=== PATIENT | male | born 1975 | race Caucasian/White ===

== ENCOUNTER 2019-02-17 21:24 | Inpatient (IN) | payer BC, OTHER ==
[~2019-02-17] VITALS: Ht 185.4 cm; Wt 127.5 kg
--- NOTE | 2019-02-17 21:30 | ED.ADGEN ---
Adult General Chief Complaint Chief Complaint ".. I all ready seen Dr Orona office.. and they said it was an [place] bite bite.. and they gave me a shot of steroids.. but the area gotten a lot more read.. and it is streaking up my Lt arm.. my whole arm is swollen now.. and hurt.. it even hurts into my chest..." HPI HPI Patient is a 43 year old MALE who presents with above hx and complaints Headache, Lt. arm and chest pain. Patient has left arm swelling at area of erythema that is inside of his left arm up to his axillary area. Does have adenopathy in axillary area. There is some streaking or striations. No obvious cording. Distal neurovascular intact. Patient denies any trauma. No recent travel. No history of immunosuppression. Patient does not remember his last tetanus. Patient was seen in Dr. Orona's office today. In diet as well as a open wide by and received a IM injection of steroids. Pt. stated since that time he had increase symptoms, Lt. arm edema and pain. Pt. complaints of fever and chills. Review of Systems Review of Systems Constitutional: Denies fever or chills [] Eyes: Denies change in visual acuity, redness, or eye pain [] HENT: Denies nasal congestion or sore throat [] Respiratory: Denies cough or shortness of breath [] Cardiovascular: No additional information not addressed in HPI [] GI: Denies abdominal pain, nausea, vomiting, bloody stools or diarrhea [] : Denies dysuria or hematuria [] Musculoskeletal: Denies back pain or joint pain [] Complaints of Lt arm pain and edema. Integument: Denies rash or skin lesions []Complaints of Lt arm rash. Neurologic: Denies headache, focal weakness or sensory changes [] Endocrine: Denies polyuria or polydipsia [] All other systems were reviewed and found to be within normal limits, except as documented in this note. Family History Family History Noncontributory Current Medications Current Medications Current Medications Medications (Trade) Dose Ordered Sig/Kali Start Time Stop Time Status Last Admin Dose Admin Acetaminophen (Tylenol) 650 mg PRN Q4HRS PRN 02/18/19 00:00 02/18/19 23:59 Albuterol/ Ipratropium (Duoneb) 3 ml RTQID 02/18/19 08:00 02/19/19 07:59 Aspirin (Children'S Aspirin) 81 mg DAILY 02/18/19 09:00 Ceftriaxone Sodium 1 gm/ Sodium Chloride 50 ml @ 100 mls/hr QHS 02/18/19 21:00 Ceftriaxone Sodium (Rocephin) 1 gm STK-MED ONCE 02/17/19 22:41 02/17/19 22:41 DC Diphtheria/ Tetanus/Acell Pertussis (Boostrix) 0.5 ml ONCE ONCE 02/17/19 22:30 02/17/19 22:31 DC 02/17/19 22:54 0.5 ML Enoxaparin Sodium (Lovenox 120mg Syringe) 120 mg BID 02/18/19 09:00 Lactated Ringer's 1,000 ml @ 160 mls/hr Q6H15M 02/18/19 04:00 Lactobacillus Rhamnosus (Culturelle) 1 cap BID 02/18/19 09:00 Morphine Sulfate (Morphine 10mg Syringe) 10 mg QIDPRN PRN 02/18/19 00:00 Ondansetron HCl (Zofran) 4 mg PRN Q4HRS PRN 02/18/19 00:00 02/18/19 23:59 Sodium Chloride 50 ml @ As Directed STK-MED ONCE 02/17/19 22:41 02/17/19 22:41 DC Trimethoprim/ Sulfamethoxazole (Bactrim Ds) 1 tab BID 02/18/19 09:00 Allergies Allergies Allergies Coded Allergies Type Severity Reaction Last Updated Verified No Known Drug Allergies 07/11/14 No Physical Exam Physical Exam Constitutional: Well developed, well nourished, no acute distress, non-toxic appearance. [] HENT: Normocephalic, atraumatic, bilateral external ears normal, oropharynx moist, no oral exudates, nose normal. [] Scar rt. eyebrow. Eyes: PERRLA, EOMI, conjunctiva normal, no discharge. [] Neck: Normal range of motion, no tenderness, supple, no stridor. [] Cardiovascular:Tachycardia Heart rate regular rhythm, no murmur [] Lungs & Thorax: Bilateral breath sounds equal at apexes on auscultation [] Abdomen: Bowel sounds normal, soft, no tenderness, no masses, no pulsatile masses. [] Skin: Warm, dry, erythema and rash lt arm as per HPI Back: No tenderness, no CVA tenderness. [] Extremities: No tenderness, no cyanosis, no clubbing, ROM intact, no edema. [] Except edema and tenderness in Lt. arm. Neurologic: Alert and oriented X 3, normal motor function, normal sensory function, no gross focal deficits noted. [] Psychologic: Affect anxious, judgement normal, mood normal. [] Current Patient Data Vital Signs Vital Signs Date Time Temp Pulse Resp B/P (MAP) Pulse Ox O2 Delivery O2 Flow Rate FiO2 02/17/19 22:54 19 100 02/17/19 21:25 98.8 100 Room Air Lab Results Laboratory Tests Test 02/17/19 21:50 02/17/19 23:20 White Blood Count 15.9 x10^3/uL (4.0-11.0) H Red Blood Count 4.58 x10^6/uL (4.30-5.70) Hemoglobin 14.5 g/dL (13.0-17.5) Hematocrit 42.9 % (39.0-53.0) Mean Corpuscular Volume 94 fL (79-100) Mean Corpuscular Hemoglobin 32 pg (25-35) Mean Corpuscular Hemoglobin Concent 34 g/dL (31-37) Red Cell Distribution Width 13.4 % (11.5-14.5) Platelet Count 260 x10^3/uL (140-400) Neutrophils (%) (Auto) 88 % (31-73) H Lymphocytes (%) (Auto) 6 % (24-48) L Monocytes (%) (Auto) 6 % (0-9) Eosinophils (%) (Auto) 0 % (0-3) Basophils (%) (Auto) 0 % (0-3) Neutrophils # (Auto) 14.0 x10^3uL (1.8-7.7) H Lymphocytes # (Auto) 0.9 x10^3/uL (1.0-4.8) L Monocytes # (Auto) 1.0 x10^3/uL (0.0-1.1) Eosinophils # (Auto) 0.0 x10^3/uL (0.0-0.7) Basophils # (Auto) 0.0 x10^3/uL (0.0-0.2) Segmented Neutrophils % 90 % (35-66) H Band Neutrophils % 2 % (0-9) Lymphocytes % 4 % (24-48) L Monocytes % 4 % (0-10) Platelet Estimate Adequate (ADEQUATE) Prothrombin Time 11.4 SEC (9.4-11.4) Prothrombin Time INR 1.1 (0.9-1.1) Activated Partial Thromboplast Time 27 SEC (23-33) D-Dimer (Mary Jane) 0.95 mg/L (0.00-0.50) H Sodium Level 139 mmol/L (136-145) Potassium Level 4.2 mmol/L (3.5-5.1) Chloride Level 107 mmol/L (98-107) Carbon Dioxide Level 25 mmol/L (21-32) Anion Gap 7 (6-14) Blood Urea Nitrogen 30 mg/dL (8-26) H Creatinine 1.6 mg/dL (0.7-1.3) H Estimated GFR (Cockcroft-Gault) 47.0 Glucose Level 139 mg/dL (70-99) H Calcium Level 10.4 mg/dL (8.5-10.1) H Magnesium Level 2.0 mg/dL (1.8-2.4) Total Bilirubin 0.5 mg/dL (0.2-1.0) Direct Bilirubin 0.1 mg/dL (0.0-0.2) Aspartate Amino Transferase (AST) 9 U/L (15-37) L Alanine Aminotransferase (ALT) 20 U/L (16-63) Alkaline Phosphatase 107 U/L (46-116) Creatine Kinase 107 U/L (39-308) Troponin I Quantitative < 0.017 ng/mL (0-0.055) Total Protein 6.5 g/dL (6.4-8.2) Albumin 3.5 g/dL (3.4-5.0) Lipase 44 U/L (73-393) L Urine Collection Type Unknown Urine Color Yellow Urine Clarity Clear Urine pH 5.5 Urine Specific [place] 1.020 Urine Protein Neg (NEG-TRACE) Urine Glucose (UA) Neg mg/dL (NEG) Urine Ketones (Stick) Neg mg/dL (NEG) Urine Blood Neg (NEG) Urine Nitrite Neg (NEG) Urine Bilirubin Neg (NEG) Urine Urobilinogen Dipstick 0.2 mg/dL (0.2 mg/dL) Urine Leukocyte Esterase Neg (NEG) Urine RBC Occ /HPF (0-2) Urine WBC 5-10 /HPF (0-4) Urine Squamous Epithelial Cells Few /LPF Urine Bacteria 0 /HPF (0-FEW) Urine Opiates Screen Neg (NEG) Urine Methadone Screen Neg (NEG) Urine Barbiturates Neg (NEG) Urine Phencyclidine Screen Neg (NEG) Urine Amphetamine/Methamphetamine Neg (NEG) Urine Benzodiazepines Screen Neg (NEG) Urine Cocaine Screen Neg (NEG) Urine Cannabinoids Screen Pos (NEG) Urine Ethyl Alcohol Neg (NEG) EKG EKG My interpretation EKG shows a sinus tachycardia at 101, left axis.[] Radiology/Procedures Radiology/Procedures Interpretation chest x-ray shows no acute cardiopulmonary findings[] [address] [address] IMAGING REPORT Signed PATIENT: ONI ROGERS ACCOUNT: [id number] : 1975 LOCATION: ER AGE: 43 SEX: M EXAM STATUS: REG ER ORD. PHYSICIAN: GIULIANA HUA MD REASON: Chest pain, left armpit radiating into chest swelling and redness PROCEDURE: CHEST PA & LATERAL Exam: Chest 2 views INDICATION: Chest pain TECHNIQUE: Frontal and lateral views of the chest Comparisons: None FINDINGS: The cardiomediastinal silhouette and pulmonary vessels are within normal limits. The lung and pleural spaces are clear. IMPRESSION: No acute cardiopulmonary process. Electronically signed by: Catherine Zarate MD (02/17/2019 10:39 PM) [facility] DICTATED AND SIGNED BY: CATHERINE ZARATE MD DATE: 02/17/19 2239 CC: CONNER ORONA MD; GIULIANA HUA MD ~ Course & Med Decision Making Course & Med Decision Making Pertinent Labs and Imaging studies reviewed. (See chart for details) US of Lt. arm pending at time of admission. Heart Score [address] Orona. [] Final Impression Final Impression 1. Atypical Chest Pain 2. Cellulitis 3. Elevated D-dimer 0.95 4. Dehydration 5. [Elevated Bun / Crea 30/1.6 6. Leukocytosis 15.9 with Segs 90 7. Tachycardia Dragon Disclaimer Dragon Disclaimer This electronic medical record was generated, in whole or in part, using a voice recognition dictation system. Dragon Disclaimer This chart was dictated in whole or in part using Voice Recognition software in a busy, high-work load, and often noisy Emergency Department environment. It may contain unintended and wholly unrecognized errors or omissions. Dragon Disclaimer This chart was dictated in whole or in part using Voice Recognition software in a busy, high-work load, and often noisy Emergency Department environment. It may contain unintended and wholly unrecognized errors or omissions. GIULIANA HUA MD Feb 17, 2019 21:30
[2019-02-17] MEDS ORDERED: IV RINGERS SOLUTION,LACTATED 1,000 ML IV SCH (21:32)
[2019-02-17] MEDS ORDERED: ASPIRIN 81 MG TAB.CHEW PO ONE (21:45)
[2019-02-17 22:16] LABS: BASO % 0 % (0-3); EOS % 0 % (0-3); HEMATOCRIT 42.9 % (39.0-53.0); HEMOGLOBIN 14.5 g/dL (13.0-17.5); LYMPH # 0.9 x10^3/uL (1.0-4.8); LYMPH % 6 % (24-48); MEAN CORPUSCULAR HEMOGLOBIN 32 pg (25-35); MEAN CORPUSCULAR HGB CONC 34 g/dL (31-37); MEAN CORPUSCULAR VOLUME 94 fL (79-100); MONO % 6 % (0-9); NEUT % 88 % (31-73); PLATELET COUNT 260 x10^3/uL (140-400); RED BLOOD COUNT 4.58 x10^6/uL (4.30-5.70); RED CELL DISTRIBUTION WIDTH 13.4 % (11.5-14.5); WHITE BLOOD COUNT 15.9 x10^3/uL (4.0-11.0)
[2019-02-17] MEDS ORDERED: SMZ/TMP 800/160MG TABLET. PO ONE (22:30)
[2019-02-17] MEDS ORDERED: DIPHTH,PERTUSS(ACELL),TET TOX 0.5 ML DISP.SYRIN. VAX IM ONE (22:30)
[2019-02-17 22:39] LABS: % BANDS 2 % (0-9); % LYMPHS 4 % (24-48); % MONOS 4 % (0-10); % SEGS 90 % (35-66); PLT ESTIMATE ADEQUATE (ADEQUATE)
[2019-02-17 22:41] LABS: ALBUMIN 3.5 g/dL (3.4-5.0); CALCIUM 10.4 mg/dL (8.5-10.1); CREATININE 1.6 mg/dL (0.7-1.3); DIRECT BILIRUBIN 0.1 mg/dL (0.0-0.2); POTASSIUM 4.2 mmol/L (3.5-5.1); TOTAL BILIRUBIN 0.5 mg/dL (0.2-1.0); TOTAL PROTEIN 6.5 g/dL (6.4-8.2)
[2019-02-17] MEDS ORDERED: cefTRIAXone SODIUM 1 GM VIAL ONE (22:41)
[2019-02-17] MEDS ORDERED: IV NORMAL SALINE 50ML 50 ML ONE (22:41)
--- NOTE | 2019-02-17 22:42 | RAD ---
Exam: Chest 2 views INDICATION: Chest pain TECHNIQUE: Frontal and lateral views of the chest Comparisons: None FINDINGS: The cardiomediastinal silhouette and pulmonary vessels are within normal limits. The lung and pleural spaces are clear. IMPRESSION: No acute cardiopulmonary process. Electronically signed by: Catherine Downey MD (02/17/2019 10:39 PM) [facility]
[2019-02-17] MEDS ORDERED: MORPHINE SULFATE 10 MG/ML SYRINGE. SQ ONE (23:00)
[2019-02-17 23:47] LABS: BILIRUBIN,URINE NEG (NEG); CLARITY,URINE CLEAR; COLOR,URINE YELLOW; GLUCOSE,URINE NEG (NEG)
[2019-02-17 23:48] LABS: BACTERIA,URINE 0 /HPF (0-FEW); BARBITURATES NEG (NEG); BENZODIAZEPINES NEG (NEG); CANNABINOIDS POS (NEG); COCAINE NEG (NEG); METHADONE NEG (NEG); NITRITE,URINE NEG (NEG); OPIATES NEG (NEG); PHENCYCLIDINE NEG (NEG); RBC,URINE OCC /HPF (0-2); SQUAMOUS EPITHELIAL CELL,UR FEW /LPF; UROBILINOGEN,URINE 0.2 mg/dL (0.2 mg/dL)
[2019-02-17 23:50] LABS: AMPHETAMINE/METHAMPHETAMINE NEG (NEG)
[2019-02-18] MEDS ORDERED: ENOXAPARIN ** NOTE DOSE ** SYRINGE SQ ONE
[2019-02-18] MEDS ORDERED: ONDANSETRON PF 4 MG/2 ML VIAL. IV PRN
[2019-02-18] MEDS ORDERED: ACETAMINOPHEN 325 MG TABLET PO PRN
[2019-02-18] MEDS ORDERED: IV RINGERS SOLUTION,LACTATED 1,000 ML IV ONE (02:15)
[2019-02-18] MEDS: IV RINGERS SOLUTION,LACTATED 1,000 ML IV SCH ×2 (03:56→10:11)
[2019-02-18] MEDS ORDERED: ANTI-COAG MONITOR BY PHARMACY. MC PRN (04:00)
[2019-02-18 04:02] VITALS: BP 136/88
[2019-02-18] MEDS ORDERED: GUAI600T47 PO (04:02)
[2019-02-18 06:17] LABS: BASO % 0 % (0-3); EOS % 0 % (0-3); HEMATOCRIT 42.2 % (39.0-53.0); HEMOGLOBIN 14.4 g/dL (13.0-17.5); LYMPH # 0.8 x10^3/uL (1.0-4.8); LYMPH % 10 % (24-48); MEAN CORPUSCULAR HEMOGLOBIN 32 pg (25-35); MEAN CORPUSCULAR HGB CONC 34 g/dL (31-37); MEAN CORPUSCULAR VOLUME 94 fL (79-100); MONO # 0.6 x10^3/uL (0.0-1.1); MONO % 8 % (0-9); NEUT # 6.4 x10^3uL (1.8-7.7); NEUT % 82 % (31-73); PLATELET COUNT 230 x10^3/uL (140-400); RED BLOOD COUNT 4.49 x10^6/uL (4.30-5.70); RED CELL DISTRIBUTION WIDTH 13.4 % (11.5-14.5); WHITE BLOOD COUNT 7.9 x10^3/uL (4.0-11.0)
[2019-02-18 06:21] VITALS: BP 141/80
[2019-02-18 06:30] LABS: CALCIUM 9.7 mg/dL (8.5-10.1); CREATININE 1.3 mg/dL (0.7-1.3); GFR 59.7; POTASSIUM 4.3 mmol/L (3.5-5.1)
--- NOTE | 2019-02-18 06:37 | EKG ---
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
--- NOTE | 2019-02-18 07:38 | RAD ---
STUDY: VENOUS UPPER EXTREMITY LEFT INDICATION: Left arm pain, edema and elevated d-dimer. TECHNIQUE: Color-flow and pulsed wave duplex ultrasound with compression of venous structures of the left upper extremity. COMPARISON: None Available. FINDINGS: Duplex ultrasound with compression of the deep venous structures of the left upper extremity from the left internal jugular vein through the radial and ulnar veins is negative for DVT. The evaluated superficial venous structures are patent as well. Normal venous waveforms and augmentation are noted throughout. Nonspecific subcutaneous edema-like changes most notable in the shoulder area. IMPRESSION: 1. No left upper extremity deep venous thrombosis. 2. Nonspecific edema-like changes most notable at the shoulder which could represent bland edema or changes of cellulitis. Though not performed for close evaluation of the extravascular soft tissues, no drainable fluid collection is seen. Electronically signed by: BERTRAND DARNELL MD (02/18/2019 7:35 AM) [id number]
[2019-02-18] MEDS: IPRATRPIUM/ALBUTEROL 0.5/2.5MG 3 ML NEBU. NEB SCH ×4 (08:00→18:13)
[2019-02-18] MEDS ORDERED: ENOXAPARIN ** NOTE DOSE ** SYRINGE SQ SCH (09:00)
[2019-02-18] MEDS ORDERED: SMZ/TMP 800/160MG TABLET. PO SCH (09:00)
[2019-02-18] MEDS ORDERED: VANCOMYCIN PER PHARMACY MC PRN (09:15)
[2019-02-18] MEDS: ASPIRIN 81 MG TAB.CHEW PO SCH (09:19)
[2019-02-18] MEDS: LACTOBACILLUS RHAMNOSUS GG 1 CAPSULE. PO SCH ×2 (09:19→22:15)
[2019-02-18] MEDS ORDERED: IOHEXOL 350 MG/ML 100 ML VIAL. IV ONE (09:45)
[2019-02-18 10:09] VITALS: BP 143/72
[2019-02-18] MEDS: ACETAMINOPHEN 500 MG TABLET PO PRN (10:12)
--- NOTE | 2019-02-18 12:05 | RAD ---
Chest CTA History: Elevated d-dimer Technique: After bolus of intravenous contrast, CT imaging was performed of the chest. Multiplanar reconstruction images to include MIP reconstruction images are submitted. Exposure: One or more of the following individualized dose reduction techniques were utilized for this examination: 1. Automated exposure control 2. Adjustment of the mA and/or kV according to patient size 3. Use of iterative reconstruction technique. Comparison: None Findings: There is some motion. No pulmonary embolism is identified. There is trace pericardial fluid. There is no pleural fluid, pneumothorax, lobar infiltrate. There is a small left lower lobe pulmonary nodule image 62 series 3 about 0.5 cm. There is calcified right upper lobe nodule. There are some small mediastinal nodes. There are some axillary nodes bilaterally, largest on the left about 1.4 cm short axis dimension with adjacent hazy and strandy density. Large right axillary node is not considered significantly enlarged. There may be hepatic steatosis. Thoracic aortic caliber is within normal limits without intraluminal flap. Impression: 1. No pulmonary embolism is identified. 2. There are somewhat enlarged left axillary nodes with adjacent hazy and strandy density. Nonspecific findings could be reactive related to underlying inflammation or infection although clinical follow-up advised, especially if there is any clinical suspicion for neoplastic etiology. 3. There is a small left lower lobe pulmonary nodule, optional 12 month follow-up if increased risk factors for neoplasm as per revised Fleischner guidelines, no additional follow-up if low risk factors. 4. There may be hepatic steatosis. Electronically signed by: Harjinder Cheney MD (02/18/2019 12:02 PM) [id number]
[2019-02-18] MEDS: VANCOMYCIN 2 GM in IV NORMAL SALINE 500ML 500 ML IV SCH ×2 (12:30→23:28)
[2019-02-18 13:03] LABS: THYROID STIM HORMONE (TSH) 0.789 uIU/mL (0.358-3.740)
[2019-02-18] MEDS: IV NORMAL SALINE 1,000ML 1,000 ML IV SCH ×2 (15:02→23:15)
[2019-02-18] MEDS: HEPARIN for SUB-Q USE 5,000 UNIT/ML VIAL. SQ SCH ×2 (15:08→22:18)
[2019-02-18 16:26] VITALS: BP 138/77
[2019-02-18 18:50] VITALS: BP 134/82
--- NOTE | 2019-02-18 23:20 | HP ---
ADMIT DATE: 02/17/2019 HISTORY OF PRESENT ILLNESS: The patient began to have swelling to his left arm, increased fever, chills. The patient noted possible bite that got infected in his left arm. The patient complains of fever and chills. Temperature went up to 103. The patient was seen in the Emergency Room and admitted for cellulitis to the left arm. PAST MEDICAL HISTORY: DICTATION ENDS HERE CONNER ORONA MD DR: LEONIE/jenny JOB#: [id number] / [id number]
[2019-02-18 23:36] VITALS: BP 102/62
[2019-02-19] MEDS: ACETAMINOPHEN 500 MG TABLET PO PRN ×2 (01:48→14:28)
[2019-02-19] MEDS: IPRATRPIUM/ALBUTEROL 0.5/2.5MG 3 ML NEBU. NEB SCH (05:13)
[2019-02-19 05:18] VITALS: BP 126/68
[2019-02-19] MEDS: HEPARIN for SUB-Q USE 5,000 UNIT/ML VIAL. SQ SCH ×3 (06:02→21:13)
[2019-02-19 06:26] LABS: BASO % 0 % (0-3); EOS % 0 % (0-3); HEMATOCRIT 39.6 % (39.0-53.0); HEMOGLOBIN 13.3 g/dL (13.0-17.5); LYMPH % 8 % (24-48); MEAN CORPUSCULAR HEMOGLOBIN 32 pg (25-35); MEAN CORPUSCULAR HGB CONC 34 g/dL (31-37); MEAN CORPUSCULAR VOLUME 95 fL (79-100); MONO # 0.8 x10^3/uL (0.0-1.1); MONO % 6 % (0-9); NEUT # 11.5 x10^3uL (1.8-7.7); NEUT % 86 % (31-73); PLATELET COUNT 212 x10^3/uL (140-400); RED BLOOD COUNT 4.16 x10^6/uL (4.30-5.70); RED CELL DISTRIBUTION WIDTH 13.6 % (11.5-14.5); WHITE BLOOD COUNT 13.3 x10^3/uL (4.0-11.0)
[2019-02-19 06:40] LABS: CALCIUM 10.1 mg/dL (8.5-10.1); CREATININE 1.6 mg/dL (0.7-1.3); POTASSIUM 4.6 mmol/L (3.5-5.1)
[2019-02-19] MEDS ORDERED: ZOLPIDEM 5 MG TABLET. PO PRN (09:15)
[2019-02-19] MEDS: LACTOBACILLUS RHAMNOSUS GG 1 CAPSULE. PO SCH ×2 (09:35→21:10)
[2019-02-19] MEDS: ASPIRIN 81 MG TAB.CHEW PO SCH (09:35)
[2019-02-19] MEDS ORDERED: PIP/TAZO PER PHARMACY MC PRN (10:00)
[2019-02-19] MEDS: PIPERACILLIN/TAZOBACTAM 3.375 GM in IV NORMAL SALINE 50ML 50 ML IV SCH ×3 (10:00→21:10)
[2019-02-19 10:59] VITALS: BP 144/86
[2019-02-19] MEDS ORDERED: PIP/TAZO PER PHARMACY MC SCH (12:00)
[2019-02-19] MEDS: VANCOMYCIN 2 GM in IV NORMAL SALINE 500ML 500 ML IV SCH ×2 (12:04→22:31)
[2019-02-19 15:12] VITALS: BP 173/97
[2019-02-19] MEDS: METOPROLOL TART IMMED RELEASE 50 MG TABLET PO SCH (16:30)
--- NOTE | 2019-02-19 18:33 | PN ---
DATE: 02/19/2019 SUBJECTIVE: A 43-year-old gentleman with cellulitis of the left arm, although he says he feels a little better. The arm still looks very swollen and tender. [id number]: VITAL SIGNS: His heart rate has gone up to 123, temperature is down to 98.9, respiratory rate 18, blood pressure 102/62 and oxygen saturation good. GENERAL: The patient otherwise alert and oriented, says he feels a little better. EXTREMITIES: Left arm still markedly swollen, tender, erythematous in large areas of the arm itself. Pulses noted distally. ASSESSMENT AND PLAN: We will continue him of changed from Levaquin to Zosyn and vancomycin. White count went up to 13. We will continue to monitor and continue otherwise monitoring PICC line placement and IV antibiotic therapy as an outpatient, cellulitis to the left arm. CT showed pulmonary nodules, need to follow up in 12 months there. Continue with IV antibiotic therapy. CONNER ORONA MD DR: LEONIE/jenny JOB#: [id number] / [id number]
[2019-02-19] MEDS: MORPHINE SULFATE 10 MG/ML SYRINGE. SQ PRN (19:30)
[2019-02-19 19:56] VITALS: BP 173/99
[2019-02-19 22:25] VITALS: BP 138/85
[2019-02-19 22:27] LABS: VANC TR 17.8 mcg/mL (10.0-20.0)
[2019-02-20] MEDS: PIPERACILLIN/TAZOBACTAM 3.375 GM in IV NORMAL SALINE 50ML 50 ML IV SCH ×4 (04:07→22:00)
[2019-02-20] MEDS: HEPARIN for SUB-Q USE 5,000 UNIT/ML VIAL. SQ SCH ×3 (04:59→22:00)
[2019-02-20 05:17] VITALS: BP 172/95
[2019-02-20] MEDS: LACTOBACILLUS RHAMNOSUS GG 1 CAPSULE. PO SCH ×2 (08:38→21:00)
[2019-02-20] MEDS: METOPROLOL TART IMMED RELEASE 50 MG TABLET PO SCH (08:39)
[2019-02-20] MEDS: ASPIRIN 81 MG TAB.CHEW PO SCH (08:39)
[2019-02-20] MEDS ORDERED: amLODIPine BESYLATE 5 MG TABLET PO SCH (09:30)
[2019-02-20] MEDS ORDERED: IV 1/2 NORMAL SALINE 1,000 ML IV PRN (10:00)
[2019-02-20 10:31] LABS: CALCIUM 10.1 mg/dL (8.5-10.1); CREATININE 1.3 mg/dL (0.7-1.3); GFR 59.7
[2019-02-20 11:00] VITALS: BP 172/107
[2019-02-20] MEDS: ACETAMINOPHEN 500 MG TABLET PO PRN ×2 (11:06→19:23)
[2019-02-20] MEDS: VANCOMYCIN 2 GM in IV NORMAL SALINE 500ML 500 ML IV SCH ×2 (11:43→23:00)
[2019-02-20] MEDS: IV 1/2 NORMAL SALINE 1,000 ML IV SCH ×2 (13:42→21:30)
[2019-02-20 14:45] VITALS: BP 166/82
[2019-02-20] MEDS ORDERED: amLODIPine BESYLATE 10 MG TABLET PO SCH (17:00)
--- NOTE | 2019-02-20 18:25 | PN ---
DATE: SUBJECTIVE: A 43-year-old gentleman in with cellulitis to the left arm. The patient is making some progress. His temperature is staying down 98.1. Blood pressure anywhere from 138/85-172. Pulse finally below 100. We will continue with IV antibiotic therapy and his creatinine has gone up. We will give him additional fluids, but since his creatinine went up to 1.6, we will continue to monitor this. Left arm is still swollen and erythematous, but markedly improved. He says he is feeling better, so we are on the right track. IMPRESSION: Therefore, cellulitis of the left arm with acute renal distress. CONNER ORONA MD DR: LEONIE/jenny JOB#: [id number] / [id number]
[2019-02-20] MEDS: MORPHINE SULFATE 10 MG/ML SYRINGE. SQ PRN (19:24)
[2019-02-20 19:25] VITALS: BP 155/83
[2019-02-20 23:10] VITALS: BP 147/86
== END 2019-02-20 23:20 | disposition home or self-care (01) | DRG 872 ==
LOC: ER 21:24 → 1 SOUTH 23:30
PROVIDERS: ADMIT Family Medicine; ATTEND Family Medicine
PROC: 02HV33Z Insertion of Infusion Device into Superior Vena Cava, Percutaneous Approach (ICD-10-PCS; principal; 2019-02-19)
PROC: B548ZZA Ultrasonography of Superior Vena Cava, Guidance (ICD-10-PCS; 2019-02-19)
DX: A41.9 Sepsis, unspecified organism (principal); L03.114 Cellulitis of left upper limb; E86.0 Dehydration
CPT/HCPCS: 36415; 71046; 71275; 80048; 80061; 80076; 80202; 80307; 81001; 82550; 82947; 83605; 83690; 83735; 84443; 84484; 85007; 85025; 85379; 85610; 85651; 85730; 87040; 87086; 90471; 90715; 93005; 93971; 94640; 96361; 96365; 96372; J0696; J1644; J1650; J1956; J2270; J2405; J2543; J3370; J7030; J7040; J7120; J7620; Q9967; 99285-25